=== PATIENT | female | born 1975 | race Caucasian/White ===

== ENCOUNTER 2022-05-27 17:08 | Emergency (ER) | payer OTHER ==
[2022-05-27] MEDS ORDERED: TYLENOL 325 MG PO ONE (18:54)
[2022-05-27] MEDS ORDERED: TORAdol 30 mg Injection IV ONE (18:54)
[2022-05-27] MEDS ORDERED: Sodium Chloride 0.9% 1000 ML 1,000 ML IV STA (18:54)
[2022-05-27] MEDS ORDERED: Sodium Chloride 0.9% 1000 ML 1,000 ML ONE (19:02)
[2022-05-27] MEDS ORDERED: TYLENOL 325 MG ONE (19:02)
[2022-05-27] MEDS ORDERED: TORAdol 30 mg Injection ONE (19:02)
--- NOTE | 2022-05-27 19:11 | ERPHSYRPT ---
- History of Present Illness Time Seen by Provider: 05/27/22 19:09 Source: patient Exam Limitations: no limitations Patient Subjective Stated Complaint: fever, generalized malaise, sharp pain to R quaker, dry cough since 05/24. Triage Nursing Assessment: Arrives to ED A & Ox3, ambulates to bed 6. Co fever, body aches, R quaker pain, dry cough since 05/24. States dx with UTI 05/22/22 and was put on a sulfa drug for it. Is worried she may be having an allergic reaction to the abx as her twin sister has this type of "flu like allergic reaction" to sulfa drugs. Pt face is flushed, pt is febrile. Slightly tachycardic. Reports some diffuse abdominal pain along with symptoms. A & OX3. Physician History: Patient 46-year-old female presents emergency department for evaluation of days cough body aches. Patient currently being treated for urinary tract infection. Patient on Bactrim. Patient reports a fever. Diffuse abdominal pain. No trauma. No nausea or vomiting. No diarrhea. No rash. Symptoms have been ongoing for about 3 days. She states she is otherwise healthy. She voices no other complaints or concerns at this time. Portions of this note were created with voice recognition technology. There may be grammatical, spelling, punctuation or sound alike errors Timing/Duration: day(s) (3 days) Severity: moderate Modifying Factors: Improves With: nothing Associated Symptoms: denies symptoms Allergies/Adverse Reactions: Sulfa (Sulfonamide Antibiotics) Allergy (Intermediate, Verified 05/27/22 20:59) Hives Hx Tetanus, Diphtheria Vaccination/Date Given: No Hx Influenza Vaccination/Date Given: No Travel Risk - International Travel Have you traveled outside of the country in past 3 weeks: No - Coronavirus Screening Are you exhibiting any of the following symptoms?: Yes Symptoms: Fever, Cough: New Onset Close contact with a COVID-19 positive Pt in past 14-21 Days: No - Vaccine Status Have you recieved a Covid-19 vaccination: Yes 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: [employer] - Vaccination Dates Date of 2cond Vaccination (if applicable): 2020 - Review of Systems Constitutional: No Symptoms, No Fever, No Chills Eyes: No Symptoms Ears, Nose, & Throat: No Symptoms Respiratory: No Symptoms, No Cough, No Dyspnea Cardiac: No Symptoms, No Chest Pain, No Edema, No Syncope Abdominal/Gastrointestinal: No Symptoms, No Abdominal Pain, No Nausea, No Vomiting, No Diarrhea Genitourinary Symptoms: No Symptoms, No Dysuria Musculoskeletal: No Symptoms, No Back Pain, No Neck Pain Skin: No Symptoms, No Rash Neurological: No Symptoms, No Dizziness, No Focal Weakness, No Sensory Changes Psychological: No Symptoms Endocrine: No Symptoms Hematologic/Lymphatic: No Symptoms Immunological/Allergic: No Symptoms All Other Systems: Reviewed and Negative - Past Medical History Neurological History: Migraines Cardiac History: No Pertinent History Respiratory History: No Pertinent History Endocrine Medical History: Thyroid Cancer Musculoskeletal History: No Pertinent History Other Medical History: Cholecystectomy - Past Surgical History Past Surgical History: Yes Gastrointestinal: Cholecystectomy - Social History Smoking Status: Never smoker Drug Use: none Patient Lives Alone: No - Female History Hx Now: No - Nursing Vital Signs Nursing Vital Signs: Initial Vital Signs Temperature 101 F 05/27/22 17:56 Pulse Rate 121 H 05/27/22 17:56 Respiratory Rate 16 05/27/22 17:56 Blood Pressure 124/68 05/27/22 17:56 O2 Sat by Pulse Oximetry 98 05/27/22 17:56 Pain Scale Pain Intensity 0 - Physical Exam General Appearance: no apparent distress, alert Eye Exam: PERRL/EOMI, eyes nml inspection Ears, Nose, Throat Exam: normal ENT inspection, TMs normal, pharynx normal, moist mucous membranes Neck Exam: normal inspection, non-tender, supple, full range of motion Respiratory Exam: normal breath sounds, lungs clear, airway intact, No respiratory distress Cardiovascular Exam: regular rate/rhythm, normal heart sounds, normal peripheral pulses Gastrointestinal/Abdomen Exam: soft, normal bowel sounds, No tenderness, No mass Back Exam: normal inspection, normal range of motion, No CVA tenderness, No vertebral tenderness Extremity Exam: normal inspection, normal range of motion, pelvis stable Neurologic Exam: alert, oriented x 3, cooperative, normal mood/affect, nml cerebellar function, nml station & gait, sensation nml, No motor deficits Skin Exam: normal color, warm, dry, No rash Lymphatic Exam: No adenopathy SpO2 Interpretation: normal SpO2: 98 O2 Delivery: Room Air - Course Nursing assessment & vital signs reviewed: Yes - CT Exams Abdomen/Pelvis CT Interpretation: Tele-radiologist Report (No comps. Normal appendix. Little scattered fecal debris greatest right hemicolon. Multiple left renal cysts largest 7.8 cm. Uterine IUD. Remaining abdomen pelvis negative) Ordered Tests: Active Orders 24 hr Category Date Time Status IV Insertion STAT Care 05/27/22 18:54 Active ABDOMEN AND PELVIS W/0 CONTRAS [CT] Stat Exams 05/27/22 19:22 Taken CBC W DIFF Stat Lab 05/27/22 19:15 Results CMP Stat Lab 05/27/22 19:15 Completed CULTURE,URINE Stat Lab 05/27/22 Received HCG,QUALITATIVE URINE Stat Lab 05/27/22 18:57 Completed Manual Differential NC Stat Lab 05/27/22 19:15 Results Pathologist Review Stat Lab 05/27/22 19:15 Results UA W/RFX CULTURE Stat Lab 05/27/22 Completed Medication Summary Generic Name Dose Route Start Last Admin Trade Name Freq PRN Reason Stop Dose Admin Ceftriaxone Sodium/Dextrose 1 g in 50 mls @ 100 mls/hr 05/28/22 10:00 05/27/22 22:34 Rocephin 1 Gm-D5w 50 Ml Bag IV 05/31/22 09:59 Infused Q24H10 KRAIG Infusion Discontinued Medications Generic Name Dose Route Start Last Admin Trade Name Freq PRN Reason Stop Dose Admin Acetaminophen 975 mg 05/27/22 18:54 05/27/22 19:03 Acetaminophen 325 Mg Tablet PO 05/27/22 18:55 975 mg STAT ONE Administration Acetaminophen Confirm 05/27/22 19:02 Acetaminophen 325 Mg Tablet Administered 05/27/22 19:03 Dose 975 mg .ROUTE .STK-MED ONE Methylprednisolone Sodium 0 mg 05/27/22 20:54 05/27/22 21:00 Succinate 125 mg/ Sterile IV 05/27/22 20:55 125 mg Water 2 ml STAT ONE Administration Sodium Chloride 1,000 mls @ 999 mls/hr 05/27/22 18:54 05/27/22 22:35 Sodium Chloride 0.9% 1000 Ml IV 05/27/22 19:54 Infused .Q1H1M STA Infusion Sodium Chloride Confirm 05/27/22 19:02 Sodium Chloride 0.9% 1000 Ml Administered 05/27/22 19:03 Dose 1,000 mls @ ud .ROUTE .STK-MED ONE Ceftriaxone Sodium/Dextrose Confirm 05/27/22 21:03 Rocephin 1 Gm-D5w 50 Ml Bag Administered 05/27/22 21:04 Dose 1 g in 50 mls @ ud IV .STK-MED ONE Ketorolac Tromethamine 30 mg 05/27/22 18:54 05/27/22 19:03 Ketorolac Tromethamine 30 Mg/Ml Inj IV 05/27/22 18:55 30 mg STAT ONE Administration Ketorolac Tromethamine Confirm 05/27/22 19:02 Ketorolac Tromethamine 30 Mg/Ml Inj Administered 05/27/22 19:03 Dose 30 mg .ROUTE .STK-MED ONE Methylprednisolone Sodium Succinate Confirm 05/27/22 20:59 Methylprednis Sod Succ 125 Mg/2 Ml Vial Administered 05/27/22 21:00 Dose 125 mg .ROUTE .STK-MED ONE Sterile Water Confirm 05/27/22 20:59 Water For Injection,Sterile 10 Ml Vial Administered 05/27/22 21:00 Dose 10 ml IJ .STK-MED ONE Lab/Rad Data: Laboratory Result Diagrams 05/27/22 19:15 05/27/22 19:15 Laboratory Results 05/27/22 05/27/22 05/27/22 Range/Units Unknown 19:40 19:15 WBC (4.0-10.5) x10^3/uL RBC (4.1-5.4) x10^6/uL Hgb (12.0-16.0) g/dL Hct (35-47) % MCV (78-100) fL MCH (26-32) pg MCHC (32-36) g/dL RDW (11.5-14.0) % Plt Count (150-450) x10^3/uL MPV (7.5-11.0) fL Segmented Neutrophils (36.0-66.0) % Band Neutrophils (0.0-2.0) % Lymphocytes (Manual) (24-44) % Monocytes (Manual) (0.0-12.0) % Eosinophils (Manual) (0.00-3.0) % Platelet Estimate (NORMAL) RBC Morphology Microcytosis Smear Path Review Sodium 130 L (137-145) mmol/L Potassium 3.5 (3.5-5.1) mmol/L Chloride 99 (98-107) mmol/L Carbon Dioxide 23 (22-30) mmol/L Anion Gap 12.2 (5-15) MEQ/L BUN 9 (7-17) mg/dL Creatinine 0.77 (0.52-1.04) mg/dL Estimated GFR > 60.0 ML/MIN Glucose 143 H (74-106) mg/dL Calcium 7.9 L (8.4-10.2) mg/dL Total Bilirubin 0.40 (0.2-1.3) mg/dL AST 67 H (14-36) U/L ALT 35 (0-35) U/L Alkaline Phosphatase 147 H (38-126) U/L Serum Total Protein 6.9 (6.3-8.2) g/dL Albumin 3.7 (3.5-5.0) g/dL Urinalys Dipstick Clnc MAIN LAB Urine Color YELLOW (YELLOW) Urine Appearance CLOUDY A (CLEAR) Urine pH 5.5 (5-6) Ur Specific Unity >=1.030 A (1.005-1.025) POC Urine Protein Conf 30 A (Negative) Urine Ketones MODERATE-40 A (NEGATIVE) Urine Nitrite NEGATIVE (NEGATIVE) Urine Bilirubin SMALL A (NEGATIVE) Urine Urobilinogen 1 A (0-1) mg/dL Urine Leukocytes TRACE A (NEGATIVE) Urine WBC (Auto) 26-50 A (0-5) /HPF Urine RBC (Auto) 26-50 A (0-2) /HPF U Epithel Cells (Auto) MODERATE (FEW) /HPF Urine Bacteria (Auto) MANY A (NEGATIVE) /HPF Urine RBC MODERATE A (0-5) Carl/ul Urine Mucus (Auto) SLIGHT A (NEGATIVE) /HPF Ur Culture Indicated? YES Urine Glucose NEGATIVE (NEGATIVE) mg/dL Urine HCG, Qual (Negative) Influenza Type A Ag NEGATIVE (NEGATIVE) Influenza Type B Ag NEGATIVE (NEGATIVE) RSV (PCR) NEGATIVE (Negative) SARS-CoV-2 (PCR) NEGATIVE (NEGATIVE) 05/27/22 05/27/22 Range/Units 19:15 18:57 WBC 2.8 L (4.0-10.5) x10^3/uL RBC 4.91 (4.1-5.4) x10^6/uL Hgb 14.3 (12.0-16.0) g/dL Hct 42.9 (35-47) % MCV 87.4 (78-100) fL MCH 29.1 (26-32) pg MCHC 33.3 (32-36) g/dL RDW 13.7 (11.5-14.0) % Plt Count 105 L (150-450) x10^3/uL MPV 9.0 (7.5-11.0) fL Segmented Neutrophils 66 (36.0-66.0) % Band Neutrophils 18 H (0.0-2.0) % Lymphocytes (Manual) 12 L (24-44) % Monocytes (Manual) 1 (0.0-12.0) % Eosinophils (Manual) 3 (0.00-3.0) % Platelet Estimate DECREASED (NORMAL) RBC Morphology ABNORMAL Microcytosis 1+ Smear Path Review Pending Sodium (137-145) mmol/L Potassium (3.5-5.1) mmol/L Chloride (98-107) mmol/L Carbon Dioxide (22-30) mmol/L Anion Gap (5-15) MEQ/L BUN (7-17) mg/dL Creatinine (0.52-1.04) mg/dL Estimated GFR ML/MIN Glucose (74-106) mg/dL Calcium (8.4-10.2) mg/dL Total Bilirubin (0.2-1.3) mg/dL AST (14-36) U/L ALT (0-35) U/L Alkaline Phosphatase (38-126) U/L Serum Total Protein (6.3-8.2) g/dL Albumin (3.5-5.0) g/dL Urinalys Dipstick Clnc Urine Color (YELLOW) Urine Appearance (CLEAR) Urine pH (5-6) Ur Specific Unity (1.005-1.025) POC Urine Protein Conf (Negative) Urine Ketones (NEGATIVE) Urine Nitrite (NEGATIVE) Urine Bilirubin (NEGATIVE) Urine Urobilinogen (0-1) mg/dL Urine Leukocytes (NEGATIVE) Urine WBC (Auto) (0-5) /HPF Urine RBC (Auto) (0-2) /HPF U Epithel Cells (Auto) (FEW) /HPF Urine Bacteria (Auto) (NEGATIVE) /HPF Urine RBC (0-5) Carl/ul Urine Mucus (Auto) (NEGATIVE) /HPF Ur Culture Indicated? Urine Glucose (NEGATIVE) mg/dL Urine HCG, Qual NEGATIVE (Negative) Influenza Type A Ag (NEGATIVE) Influenza Type B Ag (NEGATIVE) RSV (PCR) (Negative) SARS-CoV-2 (PCR) (NEGATIVE) - Progress Progress: improved Progress Note: Patient reassessed. She is well. Vital stable. Patient allergy profile updated to include sulfa. Patient UTI confirmed. Patient received a dose of Rocephin. A prescription for Keflex for the patient's pharmacy. While in our ED patient developed hives. Patient received Solu-Medrol symptoms resolved. patient no respiratory distress. Patient was mildly hyponatremic. Patient received a liter of normal saline to address hydration and hyponatremia. A prescription for prednisone was forwarded to patient's pharmacy. Patient agrees to follow-up with her primary care provider within 48 hours for evaluation. Portions of this note were created with voice recognition technology. There may be grammatical, spelling, punctuation or sound alike errors 05/27/22 23:01 Leukopenia observed. This will likely need to be monitored. Patient urinary tract infection still present despite of treatment with Macrobid and Bactrim. Culture and sensitivities pending. 05/27/22 23:03 Counseled pt/family regarding: lab results, diagnosis, need for follow-up, rad results - Departure Departure Disposition: Home Clinical Impression: Allergic reaction, Leukopenia, Thrombocytopenia, Hyponatremia, Hyperglycemia, Urinary tract infection Condition: Stable Critical Care Time: No Referrals: NATHAN GARCIAS NP [Primary Care Provider] - Follow up/PCP as directed Additional Instructions: Discharge/Care Plan LEN ONEIL was seen on 05/27/22 in the Emergency Room. The patient was counseled regarding Diagnosis,Lab results, Imaging studies, need for follow up and when to return to the Emergency Room. Prescriptions given: Discharge Note I have spoken with the patient and/or caregivers. I have explained the patient's condition, diagnosis and treatment plan based on the information available to me at this time. I have answered the patient's and/or caregiver's questions and addressed any concerns. The patient and/or caregivers have as good understanding of the patient's diagnosis, condition and treatment plan as can be expected at this point. The vital signs have been stable. The patient's condition is stable and appropriate for discharge from the emergency department. The patient will pursue further outpatient evaluation with the primary care physician or other designated or consulting physician as outlined in the discharge instructions. The patient and/or caregivers are agreeable to this plan of care and follow-up instructions have been explained in detail. The patient and/or caregivers have received these instruction. The patient/and or caregivers are aware that any significant change in condition or worsening of symptoms should prompt an immediate return to this or the closest emergency department or call 911. Prescriptions: Prednisone 10 mg [Deltasone 10 mg] 40 mg PO DAILY 3 Days #12 tablet Cephalexin Mh 500 mg [Keflex 500 mg] 500 mg PO QID 7 Days #28 cap
[2022-05-27 19:19] LABS: Bacteria MANY /HPF (NEGATIVE); Epithelial Cells MODERATE /HPF (FEW); Mucus SLIGHT /HPF (NEGATIVE); RBC 26-50 /HPF (0-2); WBC 26-50 /HPF (0-5)
[2022-05-27 19:20] LABS: Appearance CLOUDY (CLEAR); Bilirubin SMALL (NEGATIVE); Dipstick done @ ? MAIN LAB; Glucose NEGATIVE (NEGATIVE); Ketones MODERATE-40 (NEGATIVE); Nitrite NEGATIVE (NEGATIVE); Ph 5.5 (5-6); Protein,Urine Dip 30 (Negative); RBC MODERATE Ery/ul (0-5); Specific Gravity >=1.030 (1.005-1.025); Urobilinogen 1 mg/dL (0-1)
[2022-05-27 19:21] LABS: Urine Cultured Indicated? YES
[2022-05-27 19:25] LABS: Hematocrit 42.9 % (35-47); Hemoglobin 14.3 g/dL (12.0-16.0); Mean Cell Volume 87.4 fL (78-100); Mean Corpuscular Hemoglobin 29.1 pg (26-32); Mean Corpuscular Hgb Concent. 33.3 g/dL (32-36); Platelet Count 105 x10^3/uL (150-450); Red Blood Count 4.91 x10^6/uL (4.1-5.4); Red Cell Distribution Width 13.7 % (11.5-14.0); White Blood Count 2.8 x10^3/uL (4.0-10.5)
[2022-05-27 19:37] LABS: ALBUMIN 3.7 g/dL (3.5-5.0); ALKALINE PHOSPHATASE 147 U/L (38-126); ANION GAP 12.2 MEQ/L (5-15); BLOOD UREA NITROGEN 9 mg/dL (7-17); CHLORIDE 99 mmol/L (98-107); Calcium 7.9 mg/dL (8.4-10.2); Carbon Dioxide 23 mmol/L (22-30); Creatinine 1 0.77 mg/dL (0.52-1.04); EST GLOMERULAR FILTRATION RATE > 60.0 ML/MIN; Glucose 143 mg/dL (74-106); Potassium 3.5 mmol/L (3.5-5.1); SGOT/AST 67 U/L (14-36); SGPT/ALT 35 U/L (0-35); SODIUM 130 mmol/L (137-145); Total Protein 6.9 g/dL (6.3-8.2)
[2022-05-27 20:21] LABS: INFLUENZA A NEGATIVE (NEGATIVE); INFLUENZA B NEGATIVE (NEGATIVE); RESPIRATORY SYNCTIAL VIRUS NEGATIVE (Negative); SARS-CoV-2 Xpert Express NEGATIVE (NEGATIVE)
[2022-05-27] MEDS ORDERED: solu-MEDROL 125 MG, Sterile H2O 10 ml 2 ML IV ONE ×2 (20:54)
[2022-05-27 20:57] LABS: BAND 18 % (0.0-2.0); Eosinophil 3 % (0.00-3.0); Lymphocytes 12 % (24-44); Monocyte 1 % (0.0-12.0); Platelet Estimate DECREASED (NORMAL); Total Cells Counted 100
[2022-05-27 20:58] LABS: Microcytosis 1+
[2022-05-27] MEDS ORDERED: Sterile H2O 10 ml IJ ONE (20:59)
[2022-05-27] MEDS ORDERED: solu-MEDROL ONE (20:59)
[2022-05-27] MEDS ORDERED: ROCEPHIN 1 Gm-D5w 50 ml Bag** 1 G/50 ML IVPB IV ONE (21:03)
[2022-05-27 22:46] VITALS: O2SAT 98
[2022-05-27 23:05] VITALS: BP 121/78; PULSE 90
--- NOTE | 2022-05-28 08:31 | XRAY ---
Indication: Constipation 2 months. Pain. Multiple contiguous axial images obtained through the abdomen and pelvis without contrast. Comparison: None Lung bases demonstrates mild dependent atelectasis. Heart not enlarged. Small hiatal hernia. Noncontrasted stomach and bowel loops appear nonobstructed with normal appendix. Little scattered colonic fecal debris greatest in right hemicolon. Left kidney demonstrates multiple cysts, largest 7.8 cm. No free fluid/air. Spleen is enlarged measuring 14.3 cm. Tiny hepatic/splenic calcified granulomas. Previous cholecystotomy. Uterus demonstrates IUD in situ. Remaining liver, pancreas, spleen, adrenal glands, kidneys, ureters, bladder, uterus, and aorta are unremarkable for noncontrast exam. Osseous structures intact. No ventral or inguinal hernias. Impression: 1. Small hiatal hernia, multiple left renal cysts, splenomegaly, and old granulomatous disease. 2. Remaining CT abdomen/pelvis without contrast exam is negative.
[2022-05-28] MEDS ORDERED: ROCEPHIN 1 Gm-D5w 50 ml Bag** 1 G/50 ML IVPB IV SCH (10:00)
== END 2022-05-27 23:11 | disposition home or self-care (01) ==
LOC: ED 17:08
DX: L50.0 Allergic urticaria (principal); T36.8X5A Adverse effect of other systemic antibiotics, initial encounter; N39.0 Urinary tract infection, site not specified; D72.819 Decreased white blood cell count, unspecified; D69.6 Thrombocytopenia, unspecified; E87.1 Hypo-osmolality and hyponatremia; R73.9 Hyperglycemia, unspecified; R05.9 Cough, unspecified; M79.10 Myalgia, unspecified site; R50.9 Fever, unspecified; Z79.52 Long term (current) use of systemic steroids
CPT/HCPCS: 0241U; 36000; 36415; 74176; 80053; 81015; 81025; 85025; 87086; 96360; 96365; 96374; 96375; 99284; J0696; J1885; J2930; A9270-GY

== ENCOUNTER 2023-05-12 08:27 | Emergency (ER) | payer OTHER ==
--- NOTE | 2023-05-12 08:37 | ERPHSYRPT ---
- History of Present Illness Time Seen by Provider: 05/12/23 08:37 Source: patient Exam Limitations: no limitations Physician History: This a 47-year-old diabetic female who has left foot toe injury after dropping a can of baked beans on it. She is having swelling and tenderness present in she was concerned about a laceration. She is diabetic. She is also concerned of potential for infection. Her last tetanus shot date is unknown Timing/Duration: yesterday Severity: mild Location: feet (Left foot third toe injury) Associated Symptoms: denies symptoms Allergies/Adverse Reactions: Sulfa (Sulfonamide Antibiotics) Allergy (Intermediate, Verified 05/27/22 20:59) Hives topiramate [From Topamax] Allergy (Intermediate, Verified 05/12/23 08:48) Home Medications: AMITRIPTYLINE HCL 50 mg Tab [AMITRIPTYLINE HCL 50 mg Tablet] 50 mg PO DAILY 05/12/23 [History] Alprazolam [Xanax Xr] 0.5 mg PO DAILY PRN PRN 05/12/23 [History] Estradiol 1 mg [Estrace 1 mg] 1 mg PO DAILY 05/12/23 [History] PANTOPRAZOLE 40 mg Tablet [Protonix 40MG Tablet] 40 mg PO DAILY 05/12/23 [History] PARoxetine HCL [Paroxetine HCl] 40 mg PO DAILY 05/12/23 [History] Rizatriptan Benzoate [Rizatriptan] 10 mg PO DAILY 05/12/23 [History] Tirzepatide [Mounjaro] 7.5 mg SQ DAILY 05/12/23 [History] Tizanidine HCl 6 mg PO QHS PRN 05/12/23 [History] buPROPion HCL [Wellbutrin Xl] 300 mg PO DAILY 05/12/23 [History] Hx Tetanus, Diphtheria Vaccination/Date Given: No Hx Influenza Vaccination/Date Given: No Travel Risk - International Travel Have you traveled outside of the country in past 3 weeks: No - Coronavirus Screening Are you exhibiting any of the following symptoms?: No Close contact with a COVID-19 positive Pt in past 14-21 Days: No - Vaccine Status Have you recieved a Covid-19 vaccination: Yes Government [employer]: [employer] - Vaccination Dates Date of 2cond Vaccination (if applicable): 2020 - Review of Systems Constitutional: No Symptoms Eyes: No Symptoms Ears, Nose, & Throat: No Symptoms Respiratory: No Symptoms Cardiac: No Symptoms Abdominal/Gastrointestinal: No Symptoms Genitourinary Symptoms: No Symptoms Musculoskeletal: Injury (Left foot third toe) Skin: No Symptoms Neurological: No Symptoms Psychological: No Symptoms Endocrine: No Symptoms Hematologic/Lymphatic: No Symptoms - Past Medical History Neurological History: Migraines Cardiac History: No Pertinent History Respiratory History: No Pertinent History Endocrine Medical History: Thyroid Cancer Musculoskeletal History: No Pertinent History Other Medical History: Cholecystectomy - Past Surgical History Past Surgical History: Yes Gastrointestinal: Cholecystectomy - Social History Smoking Status: Never smoker Drug Use: none Patient Lives Alone: No - Nursing Vital Signs Nursing Vital Signs: Initial Vital Signs Temperature 97.3 F 05/12/23 08:38 Pulse Rate 85 05/12/23 08:38 Respiratory Rate 16 05/12/23 08:38 Blood Pressure 115/79 05/12/23 08:38 O2 Sat by Pulse Oximetry 97 05/12/23 08:38 Pain Scale Pain Intensity 3 - Physical Exam General Appearance: no apparent distress, alert, anxiety Eye Exam: PERRL/EOMI, eyes nml inspection Ears, Nose, Throat Exam: normal ENT inspection, moist mucous membranes Neck Exam: normal inspection, non-tender, supple, full range of motion Respiratory Exam: airway intact, No chest tenderness, No respiratory distress Gastrointestinal/Abdomen Exam: No tenderness Pelvic Exam: not done Rectal Exam: not done Back Exam: normal inspection, normal range of motion, No CVA tenderness, No vertebral tenderness Extremity Exam: normal range of motion, pelvis stable, tenderness (Tenderness swelling and abrasion without laceration left third toe) Neurologic Exam: alert, oriented x 3, cooperative, lead blender II-XII nml as tested, normal mood/affect, nml cerebellar function, nml station & gait, sensation nml Skin Exam: normal color, warm, dry Lymphatic Exam: No adenopathy SpO2 Interpretation: normal O2 Delivery: Room Air - Course Nursing assessment & vital signs reviewed: Yes Ordered Tests: Active Orders 24 hr Category Date Time Status FOOT (MINIMUM 3 VIEWS) Stat Exams 05/12/23 09:09 Completed Medication Summary Discontinued Medications Generic Name Dose Route Start Last Admin Trade Name Freq PRN Reason Stop Dose Admin Diphtheria/Tetanus/Acell Pertussis 0.5 ml 05/12/23 09:09 05/12/23 09:16 Tdap --Diph,Pertuss(Acell),Tet Vac/Pf 0.5 Ml Vial IM 05/12/23 09:10 0.5 ml .ONCE ONE Administration Diphtheria/Tetanus/Acell Pertussis Confirm 05/12/23 09:14 Tdap --Diph,Pertuss(Acell),Tet Vac/Pf 0.5 Ml Vial Administered 05/12/23 09:15 Dose 0.5 ml IM .STK-MED ONE Oxycodone/Acetaminophen 1 tab 05/12/23 09:22 05/12/23 09:34 Oxycodone Hcl/Apap 5 Mg/325 Mg Tablet PO 05/12/23 09:23 1 tab STAT STA Administration Oxycodone/Acetaminophen Confirm 05/12/23 09:33 Oxycodone Hcl/Apap 5 Mg/325 Mg Tablet Administered 05/12/23 09:34 Dose 1 tab .ROUTE .STK-MED ONE - Progress Progress: unchanged Progress Note: 05/12/23 09:12 This patient's medical issue is 1 of low complexity. The level complexity in the work-up performed is based on review the patient's past medical history, review of the patient's medication list, review of the patient's drug allergy list, history present illness and physical findings on examination. The work-up in this patient includes providing the patient with Adacel injection and x-ray of her left foot. 05/12/23 09:40 X-ray of the left foot was interpreted by the radiologist. There is no evidence of any acute fracture or dislocation present. Patient does have a heel spur. Counseled pt/family regarding: diagnosis, need for follow-up, rad results Medical Desision Making - Diagnostic Testing Diagnostic test were ordered, analyzed, and reviewed by me: Yes Radiological Interpretation: Reviewed by me, Teleradiologist Report - Risk of complications The pt has a mod risk of morbidity or mortality based on: Need for prescription drug management - Departure Departure Disposition: Home Clinical Impression: Contusion of toe of left foot, Abrasion of toe of left foot Condition: Stable Critical Care Time: No Referrals: NATHAN GARCIAS, SERICULTURIST [Primary Care Provider] - Follow up/PCP as directed Additional Instructions: Soak left foot in water and ice 3 times a day for the next 48 hours. May cover the site with bandage/Band-Aid. Change as necessary. Take your antibiotics as prescribed. Follow-up with your primary care provider for further evaluation management. Prescriptions: Oxycodone HCl/Acetaminophen [Percocet 5-325 mg Tablet] 1 each PO Q8H PRN PRN #6 tablet MDD 3 PRN Reason: Moderate To Severe Pain Cephalexin Mh 500 mg [Keflex 500 mg] 500 mg PO TID #15 cap
[2023-05-12 08:47] VITALS: TEMP 97.3
[2023-05-12] MEDS ORDERED: Adacel Vial IM ONE (09:14)
[2023-05-12] MEDS: Adacel Vial IM ONE (09:16)
[2023-05-12] MEDS ORDERED: PERCOCET TABLET 5/325MG ONE (09:33)
[2023-05-12] MEDS: PERCOCET TABLET 5/325MG PO STA (09:34)
--- NOTE | 2023-05-12 09:35 | XRAY ---
Indication: 4th digit pain and bleeding following injury. Comparison: None 3 nonweightbearing views left foot demonstrates tiny posterior heel spur and incidental small cuboid accessory ossicle. No other bony, articular, or soft tissue abnormalities.
[2023-05-12 09:42] VITALS: BP 115/71; PULSE 76; RESP 18; O2SAT 99
[2023-05-12] MEDS ORDERED: BACIGUENT PACKET ONE (09:49)
[2023-05-12] MEDS: BACIGUENT PACKET TP ONE (09:52)
== END 2023-05-12 10:01 | disposition home or self-care (01) ==
LOC: ED 08:27
DX: S90.415A Abrasion, left lesser toe(s), initial encounter (principal); W20.8XXA Other cause of strike by thrown, projected or falling object, initial encounter; E11.9 Type 2 diabetes mellitus without complications; Z79.85 Long-term (current) use of injectable non-insulin antidiabetic drugs; Z79.891 Long term (current) use of opiate analgesic; Z79.899 Other long term (current) drug therapy; Z23 Encounter for immunization
CPT/HCPCS: 73630; 90471; 90715; 99283; A9270-GY